=== PATIENT | male | born 1970 | race Two or more races ===

== ENCOUNTER 2017-10-29 11:52 | Emergency (ER) | payer OTHER ==
[~2017-10-29] VITALS: Ht 182.9 cm; Wt 111.1 kg
[2017-10-29] MEDS ORDERED: IBUPROFEN 400 MG TABLET PO ONE (12:30)
--- NOTE | 2017-10-29 12:30 | NUR ---
PT IS IN ROOM #2A. DR VASQUEZ EVALUATED THE PT.
[2017-10-29] MEDS ORDERED: IBUPROFEN 400 MG TABLET ONE (12:52)
--- NOTE | 2017-10-29 13:43 | NUR ---
PT WAS D/C TO HOME. D/C INSTRUCTIONS GIVEN TO THE PT.
[2017-10-29 13:46] VITALS: BP 139/78
== END 2017-10-29 13:47 | disposition home or self-care (01) ==
LOC: ER 11:54
DX: S13.4XXA Sprain of ligaments of cervical spine, initial encounter (principal); S33.5XXA Sprain of ligaments of lumbar spine, initial encounter; S69.91XA Unspecified injury of right wrist, hand and finger(s), initial encounter; V43.52XA Car driver injured in collision with other type car in traffic accident, initial encounter; Y92.410 Unspecified street and highway as the place of occurrence of the external cause; Y93.89 Activity, other specified; Y99.8 Other external cause status
CPT/HCPCS: 72100; 73140; A4663

== ENCOUNTER 2017-11-06 11:12 | Emergency (ER) | payer OTHER ==
[~2017-11-06] VITALS: Ht 182.9 cm; Wt 111.1 kg
--- NOTE | 2017-11-06 13:00 | NUR ---
Pt upset at wait time, stated he can no long wait and walked out of ER.
--- NOTE | 2017-11-06 13:16 | NUR ---
PT LEFT WITHOUT BEEN EVALUATED BY YVETTE SAMSON.
== END 2017-11-06 13:15 | disposition left against medical advice (07) ==
LOC: ER 11:12
DX: Z53.21 Procedure and treatment not carried out due to patient leaving prior to being seen by health care provider (principal)
CPT/HCPCS: A4663

== ENCOUNTER 2019-01-25 19:16 | Emergency (ER) | payer SELFPAY ==
[~2019-01-25] VITALS: Ht 182.9 cm; Wt 102.1 kg
[2019-01-25] MEDS ORDERED: KETOROLAC TROMETHAMINE 30 MG INJ IM ONE (19:45)
[2019-01-25] MEDS ORDERED: KETOROLAC TROMETHAMINE 60 MG INJ IM ONE (19:56)
--- NOTE | 2019-01-25 20:19 | NUR ---
PATIENT BACK FROM CT. NO ACUTE DISTRESS NOTED. VSS
--- NOTE | 2019-01-25 20:45 | NUR ---
Patient discharged to home in stable conditon. Written and verbal after care instructions given. Patient verbalizes understanding of instructions. Ambulated from ER with stable gait. All belongings with patient.
[2019-01-25 20:46] VITALS: BP 141/87
== END 2019-01-25 20:46 | disposition home or self-care (01) ==
LOC: ER 19:16
DX: S16.1XXA Strain of muscle, fascia and tendon at neck level, initial encounter (principal); V29.9XXA Motorcycle rider (driver) (passenger) injured in unspecified traffic accident, initial encounter; Y93.89 Activity, other specified; Y92.89 Other specified places as the place of occurrence of the external cause; Y99.8 Other external cause status
CPT/HCPCS: 72125; 96372; 99284; J1885; A4663

== ENCOUNTER 2021-11-26 12:03 | Emergency (ER) | payer OTHER ==
[~2021-11-26] VITALS: Ht 180.3 cm; Wt 122.5 kg
[2021-11-26] MEDS ORDERED: AMLO2.5T2 PO (12:28)
[2021-11-26] MEDS ORDERED: ONDANSETRON 4 MG/2 ML VIAL IV ONE (12:30)
[2021-11-26] MEDS ORDERED: IV NORMAL SALINE 1000 ML BAG IV ONE ×2 (12:30→15:00)
--- NOTE | 2021-11-26 12:42 | NUR ---
PT IS IN ROOM #2B. DR SANTANA EVALJUATED THE PT.
[2021-11-26] MEDS ORDERED: ONDANSETRON 4 MG/2 ML VIAL ONE (12:50)
[2021-11-26 14:35] LABS: HEMATOCRIT 48.8 % (36.7-47.1); MEAN CORPUSCULAR HEMOGLOBIN 25.4 uug (23.8-33.4); MEAN CORPUSCULAR VOLUME 76.4 fL (73.0-96.2); PLATELET COUNT (AUTO) 203 K/uL (152-348)
[2021-11-26 14:50] LABS: ALANINE AMINOTRANSFERASE 65 U/L (16-63); ALKALINE PHOSPHATASE 70 U/L (50-136); ASPARTATE AMINOTRANSFERASE 26 U/L (15-37); BILIRUBIN,DIRECT 0.1 mg/dL (0.0-0.2); BILIRUBIN,TOTAL 0.5 mg/dL (0.2-1.0); CARBON DIOXIDE 22 mmol/L (21-32); CHLORIDE 105 mmol/L (98-107); GLUCOSE 118 mg/dL (74-106); LIPASE 142 U/L (73-393); POTASSIUM 4.4 mmol/L (3.5-5.1); TOTAL PROTEIN, SERUM 6.7 g/dL (6.4-8.2); UREA NITROGEN, BLOOD 15 mg/dL (7-18)
[2021-11-26] MEDS ORDERED: ONDA4TAB5 PO (16:15)
--- NOTE | 2021-11-26 16:32 | NUR ---
PT WAS D/C'd TO HOME. D/C INSTRUCTIONS GIVEN TO THE PT BY DR SANTANA.
[2021-11-26 16:34] VITALS: BP 147/89
== END 2021-11-26 16:37 | disposition home or self-care (01) ==
LOC: ER 12:03
DX: R11.0 Nausea (principal); R42 Dizziness and giddiness; R00.0 Tachycardia, unspecified; D72.829 Elevated white blood cell count, unspecified; R03.0 Elevated blood-pressure reading, without diagnosis of hypertension; N20.0 Calculus of kidney
CPT/HCPCS: 36415; 71045; 74176; 80048; 80076; 83605; 83690; 84484; 85025; 87040 ×2; 93005; 96361; 96374; 99285; J2405; J7040; A4663

== ENCOUNTER 2023-02-04 19:15 | Emergency (ER) | payer OTHER ==
[~2023-02-04] VITALS: Ht 180.3 cm; Wt 126.1 kg
[~2023-02-04 19:15] MED LIST: AMLO2.5T2 PO; ONDA4TAB5 PO
[2023-02-04 19:59] LABS: BASOPHILS # (AUTO) 0.1 K/UL (0.0-0.2); BASOPHILS % (AUTO) 0.8 % (0.0-2.0); EOSINOPHILS # (AUTO) 0.2 K/uL (0.0-0.7); EOSINOPHILS % (AUTO) 1.5 % (0.0-7.0); HEMATOCRIT 45.9 % (36.7-47.1); HEMOGLOBIN 15.4 g/dL (12.5-16.3); LYMPHOCYTES # (AUTO) 1.1 K/uL (0.8-4.8); LYMPHOCYTES % (AUTO) 9.9 % (20.5-51.5); MEAN CORPUSCULAR HEMOGLOBIN 26.1 uug (23.8-33.4); MEAN CORPUSCULAR HGB CONC 34 g/dL (32.5-36.3); MEAN CORPUSCULAR VOLUME 77.6 fL (73.0-96.2); MONOCYTES # (AUTO) 1.2 K/uL (0.1-1.30); MONOCYTES % (AUTO) 10.9 % (0.0-11.0); NEUTROPHILS # (AUTO) 8.7 K/uL (1.8-8.9); NEUTROPHILS % (AUTO) 76.9 % (38.5-71.5); PLATELET COUNT (AUTO) 217 K/uL (152-348); RED BLOOD CELL COUNT(AUTO) 5.91 MIL/uL (4.06-5.63); RED CELL DISTRIBUTION WIDTH 13.7 % (12.1-16.2); WHITE BLOOD COUNT (AUTO) 11.3 K/uL (3.6-10.2)
[2023-02-04 20:15] LABS: DIFFERENTIAL COMMENT 1
[2023-02-04 20:20] LABS: *BILIRUBIN,URIN NEGATIVE (NEGATIVE); *BLOOD, URINE 2+ (NEGATIVE); *CLARITY,URINE CLEAR (CLEAR); *COLOR,URINE YELLOW (YELLOW); *KETONES,URINE NEGATIVE (NEGATIVE); *PROTEIN,URINE NEGATIVE (NEGATIVE); *UROBILINOGEN,URINE 0.2 E.U./dl (NORMAL); LEUKOCYTE ESTERASE ,URINE NEGATIVE (NEGATIVE); NITRITE, URINE NEGATIVE (NEGATIVE); UGLUCOSE NEGATIVE (NEGATIVE)
[2023-02-04 20:28] LABS: ALANINE AMINOTRANSFERASE 36 U/L (16-63); ALBUMIN 3.5 g/dL (3.4-5.0); ALKALINE PHOSPHATASE 77 U/L (50-136); ASPARTATE AMINOTRANSFERASE 22 U/L (15-37); BILIRUBIN,DIRECT 0.1 mg/dL (0.0-0.2); BILIRUBIN,TOTAL 0.3 mg/dL (0.2-1.0); CALCIUM 8.3 mg/dL (8.5-10.1); CARBON DIOXIDE 26 mmol/L (21-32); CHLORIDE 100 mmol/L (98-107); CREATININE 1.3 mg/dL (0.6-1.3); GLUCOSE 131 mg/dL (74-106); POTASSIUM 3.9 mmol/L (3.5-5.1); SODIUM SERUM 137 mmol/L (136-145); TOTAL PROTEIN, SERUM 7.2 g/dL (6.4-8.2); UREA NITROGEN, BLOOD 11 mg/dL (7-18)
[2023-02-04 20:47] LABS: LACTIC ACID 2.3 mmol/L (0.4-2.0)
[2023-02-04] MEDS ORDERED: CEFEPIME HCL 2 G in IV DEXTROSE 5% 100 ML IV ONE (21:00)
[2023-02-04] MEDS ORDERED: IV NS 1000 ML 1,000 ML IV ONE (21:00)
[2023-02-04] MEDS ORDERED: CEFEPIME HCL 1 G VIAL ONE (21:01)
[2023-02-04] MEDS ORDERED: ACETAMINOPHEN 325 MG TABLET PO ONE (21:30)
[2023-02-04] MEDS ORDERED: ACETAMINOPHEN 325 MG TABLET ONE (21:40)
[2023-02-04 22:52] LABS: BACTERIA,URINE NONE SEEN /HPF (NONE SEEN); RBC,URINE 20-50 /HPF (0-3); SQUAMOUS EPITHELIAL CELL,UR NONE SEEN /HPF (NONE SEEN); WBC,URINE 0-3 /HPF (0-3)
[2023-02-04] MEDS ORDERED: LEVO500T90 PO (23:34)
[2023-02-04] MEDS ORDERED: CYCL5TAB PO (23:47)
[2023-02-05 00:05] VITALS: BP 127/71; TEMP 98; O2SAT 100
== END 2023-02-05 00:06 | disposition home or self-care (01) ==
LOC: ER 19:17
DX: R50.9 Fever, unspecified (principal); J02.9 Acute pharyngitis, unspecified; A41.9 Sepsis, unspecified organism; M54.50 Low back pain, unspecified; R07.89 Other chest pain; Z79.2 Long term (current) use of antibiotics; Z79.899 Other long term (current) drug therapy; Z20.822 Contact with and (suspected) exposure to COVID-19
CPT/HCPCS: 99285; 96365; 71045; 87426; 80076; 80048; 81001; 85025; 84145; 85730; 86403; 87040 ×3; 84484; 36415; 93005; 83605 ×2; J0692; J7040; A4663

== ENCOUNTER 2023-08-22 08:43 | Emergency (ER) | payer OTHER ==
[~2023-08-22] VITALS: Ht 180.3 cm; Wt 111.1 kg
[~2023-08-22 08:43] MED LIST changes: +CYCL5TAB PO; +LEVO500T90 PO
[2023-08-22] MEDS ORDERED: KETOROLAC TROMETHAMINE 15 MG INJ IVP ONE (09:45)
[2023-08-22] MEDS ORDERED: DEXAMETHASONE SOD PHOSPHATE 4 MG INJ IV ONE (09:45)
[2023-08-22] MEDS ORDERED: DEXAMETHASONE SOD PHOSPHATE 10 MG INJ ONE (09:57)
[2023-08-22] MEDS ORDERED: KETOROLAC TROMETHAMINE 15 MG INJ ONE (09:57)
[2023-08-22 10:13] LABS: BASOPHILS # (AUTO) 0.1 K/UL (0.0-0.2); BASOPHILS % (AUTO) 0.6 % (0.0-2.0); CALCIUM 8.5 mg/dL (8.5-10.1); CREATININE 0.9 mg/dL (0.6-1.3); DIFFERENTIAL COMMENT 0; EOSINOPHILS # (AUTO) 0.4 K/uL (0.0-0.7); EOSINOPHILS % (AUTO) 5.3 % (0.0-7.0); HEMATOCRIT 46.8 % (36.7-47.1); HEMOGLOBIN 15.8 g/dL (12.5-16.3); LYMPHOCYTES # (AUTO) 1.5 K/uL (0.8-4.8); LYMPHOCYTES % (AUTO) 18.6 % (20.5-51.5); MEAN CORPUSCULAR HEMOGLOBIN 26.2 uug (23.8-33.4); MEAN CORPUSCULAR HGB CONC 34 g/dL (32.5-36.3); MEAN CORPUSCULAR VOLUME 77.9 fL (73.0-96.2); MONOCYTES # (AUTO) 0.9 K/uL (0.1-1.30); MONOCYTES % (AUTO) 10.8 % (0.0-11.0); NEUTROPHILS # (AUTO) 5.2 K/uL (1.8-8.9); NEUTROPHILS % (AUTO) 64.7 % (38.5-71.5); PLATELET COUNT (AUTO) 211 K/uL (152-348); POTASSIUM 4.4 mmol/L (3.5-5.1); RED BLOOD CELL COUNT(AUTO) 6.01 MIL/uL (4.06-5.63); RED CELL DISTRIBUTION WIDTH 14.9 % (12.1-16.2)
[2023-08-22 10:19] LABS: ALBUMIN 3.3 g/dL (3.4-5.0); BILIRUBIN,DIRECT 0.1 mg/dL (0.0-0.2); BILIRUBIN,TOTAL 0.3 mg/dL (0.2-1.0); TOTAL PROTEIN, SERUM 6.8 g/dL (6.4-8.2)
[2023-08-22] MEDS ORDERED: HYDROMORPHONE 1 MG/1 ML DISP.SYRIN IV ONE (10:30)
[2023-08-22] MEDS ORDERED: ONDANSETRON 4 MG/2 ML VIAL IV ONE (10:30)
[2023-08-22] MEDS ORDERED: ONDANSETRON 4 MG/2 ML VIAL ONE (10:35)
[2023-08-22] MEDS ORDERED: HYDROMORPHONE 1 MG/1 ML DISP.SYRIN ONE (10:36)
[2023-08-22] MEDS ORDERED: HYDR-3976 PO (10:58)
[2023-08-22 11:12] VITALS: BP 130/80; TEMP 98; O2SAT 99
== END 2023-08-22 11:15 | disposition home or self-care (01) ==
LOC: ER 08:52
DX: M54.50 Low back pain, unspecified (principal); Z79.899 Other long term (current) drug therapy; Z98.890 Other specified postprocedural states
CPT/HCPCS: 99285; 96374; 96375; 72131; 80076; 80048; 85025; 85651; 85730; 87040 ×2; 36415; 83605; J1100; J1885; J2405; J1170; A4606; A4663

== ENCOUNTER 2023-12-01 11:31 | Emergency (ER) | payer OTHER ==
[~2023-12-01] VITALS: Ht 180.3 cm; Wt 117.9 kg
[~2023-12-01 11:31] MED LIST changes: +HYDR-3976 PO
[2023-12-01] MEDS ORDERED: HYDROMORPHONE 1 MG/1 ML DISP.SYRIN ONE (11:57)
[2023-12-01] MEDS ORDERED: KETOROLAC TROMETHAMINE 15 MG INJ ONE (11:57)
[2023-12-01] MEDS: KETOROLAC TROMETHAMINE 15 MG INJ IM ONE (12:04)
[2023-12-01] MEDS: HYDROMORPHONE 1 MG/1 ML DISP.SYRIN IM ONE (12:04)
[2023-12-01] MEDS ORDERED: METH4TAB3 PO (12:05)
[2023-12-01] MEDS ORDERED: CYCL5TAB PO (12:05)
[2023-12-01] MEDS ORDERED: LIDO30AD10 TP (12:05)
[2023-12-01] MEDS: LIDOCAINE 5% PATCH TD ONE (12:10)
[2023-12-01] MEDS ORDERED: LIDOCAINE 5% PATCH TD ONE (12:10)
[2023-12-01 12:21] VITALS: BP 132/81; O2SAT 99
== END 2023-12-01 12:25 | disposition home or self-care (01) ==
LOC: ER 11:31
DX: M54.42 Lumbago with sciatica, left side (principal); Z79.899 Other long term (current) drug therapy
CPT/HCPCS: 99284; 96372 ×2; J1885; J1170; A4606; A4663

== ENCOUNTER 2024-08-11 00:11 | Emergency (ER) | payer OTHER ==
[~2024-08-11] VITALS: Ht 180.3 cm; Wt 103.0 kg
[~2024-08-11 00:11] MED LIST changes: +LIDO30AD10 TP; +METH4TAB3 PO
[2024-08-11] MEDS ORDERED: OXYC-133 PO (00:43)
[2024-08-11] MEDS ORDERED: CYCL10TA9 PO (00:43)
[2024-08-11] MEDS ORDERED: ONDA4TAB11 PO (00:43)
[2024-08-11 00:51] VITALS: BP 132/84; TEMP 206.6; O2SAT 98
== END 2024-08-11 00:51 | disposition home or self-care (01) ==
LOC: ER 00:20
DX: M54.50 Low back pain, unspecified (principal); Z79.899 Other long term (current) drug therapy; Z88.7 Allergy status to serum and vaccine; V89.2XXA Person injured in unspecified motor-vehicle accident, traffic, initial encounter; Y93.89 Activity, other specified; Y92.410 Unspecified street and highway as the place of occurrence of the external cause; Y99.8 Other external cause status
CPT/HCPCS: A4606; A4663